=== PATIENT | female | born 1950 | race Caucasian/White ===

== ENCOUNTER 2016-10-11 17:50 | Emergency (ER) | payer MEDICARE ==
[~2016-10-11] VITALS: Ht 160 cm; Wt 108.9 kg
--- NOTE | 2016-10-11 18:43 | PHYS DOC ---
Past Medical History Past Medical History: Diabetes-Type II, GERD, High Cholesterol, Hypertension Past Surgical History: Cholecystectomy, Hysterectomy, Knee Replacement Alcohol Use: Rarely Drug Use: None Adult General Chief Complaint Chief Complaint: OTHER COMPLAINTS HPI HPI Patient is a 65 year old male sent to the ED from the slasher runner's office with the complaint of right eye visual disturbance that began today, the slasher runner is concerned about possible giant cell arteritis. Dr. Kim, the slasher runner, called to speak with the ED charge nurse. He recommended that the patient have a CBC, CRP, sedimentation rate. The patient has no history of giant cell arteritis or stroke. The patient states she has had a right-sided headache all week and her visual disturbance began today. Patient has a history of hypertension and diabetes, does not take her medications like she is supposed to. Review of Systems Review of Systems Constitutional: Denies fever or chills [] Eyes: As in history of present illness HENT: Denies nasal congestion or sore throat [] Respiratory: Denies cough or shortness of breath [] Cardiovascular: No additional information not addressed in HPI [] GI: Denies abdominal pain, nausea, vomiting, bloody stools or diarrhea [] : Denies dysuria or hematuria [] Musculoskeletal: Denies back pain or joint pain [] Integument: Denies rash or skin lesions [] Neurologic: As in history of present illness Allergies Allergies Allergies Coded Allergies Type Severity Reaction Last Updated Verified codeine Adverse Reaction Intermediate NAUSEA 10/11/16 Yes Physical Exam Physical Exam Constitutional: Well developed, well nourished, no acute distress, non-toxic appearance. [] HENT: Normocephalic, atraumatic, bilateral external ears normal, nose normal. [ ] Eyes: Pupils have been dilated by ophthalmology, EOMI, conjunctiva normal, no discharge. [] Neck: Normal range of motion, no stridor. [] Cardiovascular:Heart rate regular rhythm, no murmur [] Lungs & Thorax: Bilateral breath sounds clear to auscultation [] Abdomen: Bowel sounds normal, soft, no tenderness, no masses, no pulsatile masses. [] Skin: Warm, dry, no erythema, no rash. [] Extremities: No tenderness, no cyanosis, no clubbing, ROM intact, no edema. [] Neurologic: Alert and oriented X 3, normal motor function, normal sensory function, no focal deficits noted. [] Current Patient Data Vital Signs Vital Signs Date Time Temp Pulse Resp B/P (MAP) Pulse Ox O2 Delivery O2 Flow Rate FiO2 10/11/16 17:56 98.1 88 24 155/78 (103) 94 Room Air 98.1 Lab Values Laboratory Tests Test 10/11/16 18:28 White Blood Count 14.7 x10^3/uL (4.0-11.0) H Red Blood Count 4.74 x10^6/uL (3.50-5.40) Hemoglobin 13.8 g/dL (12.0-15.5) Hematocrit 41.5 % (36.0-47.0) Mean Corpuscular Volume 88 fL (79-100) Mean Corpuscular Hemoglobin 29 pg (25-35) Mean Corpuscular Hemoglobin Concent 33 g/dL (31-37) Red Cell Distribution Width 15.1 % (11.5-14.5) H Platelet Count 261 x10^3/uL (140-400) Neutrophils (%) (Auto) 71 % (31-73) Lymphocytes (%) (Auto) 20 % (24-48) L Monocytes (%) (Auto) 8 % (0-9) Eosinophils (%) (Auto) 1 % (0-3) Basophils (%) (Auto) 1 % (0-3) Neutrophils # (Auto) 10.4 x10^3uL (1.8-7.7) H Lymphocytes # (Auto) 2.9 x10^3/uL (1.0-4.8) Monocytes # (Auto) 1.1 x10^3/uL (0.0-1.1) Eosinophils # (Auto) 0.2 x10^3/uL (0.0-0.7) Basophils # (Auto) 0.1 x10^3/uL (0.0-0.2) Erythrocyte Sedimentation Rate 26 (0-25) H Sodium Level 142 mmol/L (136-145) Potassium Level 3.2 mmol/L (3.5-5.1) L Chloride Level 102 mmol/L (98-107) Carbon Dioxide Level 29 mmol/L (21-32) Anion Gap 11 (6-14) Blood Urea Nitrogen 25 mg/dL (7-20) H Creatinine 0.9 mg/dL (0.6-1.0) Estimated GFR (Cockcroft-Gault) 62.6 BUN/Creatinine Ratio 28 (6-20) H Glucose Level 107 mg/dL (70-99) H Calcium Level 9.5 mg/dL (8.5-10.1) Total Bilirubin 0.4 mg/dL (0.2-1.0) Aspartate Amino Transferase (AST) 20 U/L (15-37) Alanine Aminotransferase (ALT) 29 U/L (14-59) Alkaline Phosphatase 80 U/L (46-116) C-Reactive Protein, Quantitative 8.3 mg/L (0-3.3) H Total Protein 7.6 g/dL (6.4-8.2) Albumin 3.8 g/dL (3.4-5.0) Albumin/Globulin Ratio 1.0 (1.0-1.7) Laboratory Tests 10/11/16 18:28 Laboratory Tests 10/11/16 18:28 EKG EKG [] Radiology/Procedures Radiology/Procedures [] Course & Med Decision Making Course & Med Decision Making Pertinent Labs and Imaging studies reviewed. (See chart for details) I reviewed the patient's information brought with her from Dr. Kim's office. I ordered a CBC, sedimentation rate, CRP, as well as CMP. I discussed with the patient and her daughter the plan and they're agreeable. White count elevated at 14.7. Remainder of CBC is normal. Sedimentation rate is normal for age at 26, CRP is elevated. I discussed the case with Dr. Nweman, on-call for the office of Dr. Kim and Paty. We discussed the lab results. Dr. Newman believes that in the absence of an elevated sedimentation rate, he is less concerned about temporal arteritis. He believes it is safe to discharge the patient to follow-up as planned in one week, with appropriate return precautions. Discussed results and plan with the patient and her daughter. [] Dragon Disclaimer Dragon Disclaimer This electronic medical record was generated, in whole or in part, using a voice recognition dictation system. Departure Departure Impression: Primary Impression: Visual disturbance of one eye Disposition: HOME, SELF-CARE Condition: STABLE Referrals: ORALIA ALVARADO (PCP) Additional Instructions: As we discussed, Dr. Kim's concern was a condition called temporal arteritis, and labs in the emergency department did not indicate this condition. I discussed the case with Dr. Newman. He wants you to follow up in 1 week as planned, or call them sooner if any deterioration. SOLEDAD COLEY MD Oct 11, 2016 18:43
[2016-10-11 18:44] LABS: BASO # 0.1 x10^3/uL (0.0-0.2); BASO % 1 % (0-3); EOS % 1 % (0-3); HEMATOCRIT 41.5 % (36.0-47.0); HEMOGLOBIN 13.8 g/dL (12.0-15.5); LYMPH # 2.9 x10^3/uL (1.0-4.8); LYMPH % 20 % (24-48); MEAN CORPUSCULAR HEMOGLOBIN 29 pg (25-35); MEAN CORPUSCULAR HGB CONC 33 g/dL (31-37); MEAN CORPUSCULAR VOLUME 88 fL (79-100); MONO % 8 % (0-9); NEUT % 71 % (31-73); PLATELET COUNT 261 x10^3/uL (140-400); RED BLOOD COUNT 4.74 x10^6/uL (3.50-5.40); RED CELL DISTRIBUTION WIDTH 15.1 % (11.5-14.5); WHITE BLOOD COUNT 14.7 x10^3/uL (4.0-11.0)
[2016-10-11 19:01] LABS: CALCIUM 9.5 mg/dL (8.5-10.1); CREATININE 0.9 mg/dL (0.6-1.0); GFR 62.6; POTASSIUM 3.2 mmol/L (3.5-5.1)
[2016-10-11 19:08] LABS: ALBUMIN 3.8 g/dL (3.4-5.0); TOTAL BILIRUBIN 0.4 mg/dL (0.2-1.0); TOTAL PROTEIN 7.6 g/dL (6.4-8.2)
[2016-10-11 20:37] VITALS: BP 137/82
== END 2016-10-11 20:37 | disposition home or self-care (01) ==
LOC: ER 17:50
DX: H53.9 Unspecified visual disturbance (principal); R51 Headache; E11.9 Type 2 diabetes mellitus without complications; K21.9 Gastro-esophageal reflux disease without esophagitis; E78.00 Pure hypercholesterolemia, unspecified; I10 Essential (primary) hypertension; Z90.49 Acquired absence of other specified parts of digestive tract; Z90.710 Acquired absence of both cervix and uterus; Z96.659 Presence of unspecified artificial knee joint; Z88.5 Allergy status to narcotic agent
CPT/HCPCS: 36415; 80053; 85027; 85651; 86140; 99284

== ENCOUNTER 2016-10-28 15:09 | Emergency (ER) | payer MEDICARE ==
[~2016-10-28] VITALS: Ht 162.6 cm; Wt 105.7 kg
--- NOTE | 2016-10-28 16:02 | PHYS DOC ---
Past Medical History Past Medical History: Diabetes-Type II, GERD, High Cholesterol, Hypertension Past Surgical History: Cholecystectomy, Hysterectomy, Knee Replacement Alcohol Use: Rarely Drug Use: None Adult General Chief Complaint Chief Complaint: HEADACHE HPI HPI Patient is a 65 year old female who presents with 2-3 week history of right eye inferior visual field loss intermittent headaches. Denies floaters. Headache is dull and migratory sometimes involving the temples or frontal area. No fever. Occasional posterior neck pain. Has had a prior ER visit apparently labs were checked at that time. Has had 2 prior visits to the control operator flow coat who communicated concerns for inflammation of the optic nerve but there was no specific treatment that the patient was placed on according to the daughter and the patient. Denies any falls or trauma. Patient and family deny any intracranial imaging in the past. Review of Systems Review of Systems Constitutional: Denies fever or chills [] Eyes: Denies change in visual acuity, redness, or eye pain [] HENT: Denies nasal congestion or sore throat [] Respiratory: Denies cough or shortness of breath [] Cardiovascular: No additional information not addressed in HPI [] GI: Denies abdominal pain, nausea, vomiting, bloody stools or diarrhea [] : Denies dysuria or hematuria [] Musculoskeletal: Denies back pain or joint pain [] Integument: Denies rash or skin lesions [] Neurologic: Denies headache, focal weakness or sensory changes [] Endocrine: Denies polyuria or polydipsia [ All review systems are negative except as mentioned in the history of present illness] Current Medications Current Medications Current Medications Medications (Trade) Dose Ordered Sig/[facility] Start Time Stop Time Status Last Admin Dose Admin Gadobutrol (Gadavist) 10 mmol 1X ONCE 10/28/16 17:30 10/28/16 17:31 DC 10/28/16 17:32 10 MMOL Hydromorphone HCl (Dilaudid) 0.5 mg 1X ONCE 10/28/16 18:00 10/28/16 18:01 DC 10/28/16 18:31 0.5 MG Ondansetron HCl (Zofran) 4 mg 1X ONCE 10/28/16 18:00 10/28/16 18:01 DC 10/28/16 18:30 4 MG Allergies Allergies Allergies Coded Allergies Type Severity Reaction Last Updated Verified No Known Medication Allergies Allergy Unknown 10/28/16 Yes codeine Adverse Reaction Intermediate NAUSEA 10/11/16 Yes Physical Exam Physical Exam Constitutional: Well developed, well nourished, no acute distress, non-toxic appearance. [] HENT: Normocephalic, atraumatic, bilateral external ears normal, oropharynx moist, no oral exudates, nose normal. Questionable tenderness to the bilateral lutheran areas [] Eyes: PERRLA, EOMI, conjunctiva normal, no discharge. [] Neck: Normal range of motion, no tenderness, supple, no stridor. [] Cardiovascular:Heart rate regular rhythm, no murmur [] Lungs & Thorax: Bilateral breath sounds clear to auscultation [] Abdomen: Bowel sounds normal, soft, no tenderness, no masses, no pulsatile masses. [] Skin: Warm, dry, no erythema, no rash. [] Back: No tenderness, no CVA tenderness. [] Extremities: No tenderness, no cyanosis, no clubbing, ROM intact, no edema. [] Neurologic: Alert and oriented X 3, normal motor function, normal sensory function, no focal deficits noted. Cranial nerves II through XII grossly intact except for reported visual field deficit in the inferior visual field only on the right eye [] Psychologic: Affect normal, judgement normal, mood normal. [] Current Patient Data Vital Signs Vital Signs Date Time Temp Pulse Resp B/P (MAP) Pulse Ox O2 Delivery O2 Flow Rate FiO2 10/28/16 19:06 76 18 104/57 (73) 94 Room Air 10/28/16 15:28 98.1 98.1 Lab Values Laboratory Tests Test 10/28/16 16:40 10/28/16 16:52 10/28/16 18:03 White Blood Count 16.4 x10^3/uL (4.0-11.0) H Red Blood Count 5.05 x10^6/uL (3.50-5.40) Hemoglobin 14.6 g/dL (12.0-15.5) Hematocrit 44.0 % (36.0-47.0) Mean Corpuscular Volume 87 fL (79-100) Mean Corpuscular Hemoglobin 29 pg (25-35) Mean Corpuscular Hemoglobin Concent 33 g/dL (31-37) Red Cell Distribution Width 15.0 % (11.5-14.5) H Platelet Count 276 x10^3/uL (140-400) Neutrophils (%) (Auto) 76 % (31-73) H Lymphocytes (%) (Auto) 15 % (24-48) L Monocytes (%) (Auto) 8 % (0-9) Eosinophils (%) (Auto) 1 % (0-3) Basophils (%) (Auto) 1 % (0-3) Neutrophils # (Auto) 12.4 x10^3uL (1.8-7.7) H Lymphocytes # (Auto) 2.5 x10^3/uL (1.0-4.8) Monocytes # (Auto) 1.2 x10^3/uL (0.0-1.1) H Eosinophils # (Auto) 0.1 x10^3/uL (0.0-0.7) Basophils # (Auto) 0.1 x10^3/uL (0.0-0.2) Erythrocyte Sedimentation Rate 40 (0-25) H POC Hemoglobin 15.3 g/dL (12-15) H POC Hematocrit 45 % (36-40) H POC Sodium 139 mmol/L (135-145) POC Potassium 3.6 mmol/L (3.5-5.0) POC Chloride 98 mmol/L (98-110) POC Total CO2 30 mmol/L (23-32) Anion Gap 16 mmol/L (6-14) H POC Blood Urea Nitrogen 26 mg/dL (8-26) POC Creatinine 1.3 mg/dL (0.5-1.4) Glucose Level 101 mg/dL (70-99) H POC Ionized Calcium ([place]) 1.20 mmol/L (1.13-1.32) C-Reactive Protein, Quantitative 12.5 mg/L (0-3.3) H Laboratory Tests 10/28/16 16:40 Laboratory Tests 10/28/16 16:52 EKG EKG [] Radiology/Procedures Radiology/Procedures MRI of head and neck demonstrated no aneurysm or vascular abnormality. No commentary on brain lesions or infarcts by radiology. [] Course & Med Decision Making Course & Med Decision Making Pertinent Labs and Imaging studies reviewed. (See chart for details) I discussed MRI findings with the family as well as abnormal labs including slightly elevated white blood cell count sedimentation rate and CRP. Patient is declining lumbar puncture. Patient is declining to repeat an MRI of the brain was apparently only showed the vasculature not the actual brain matter. The nanotechnician told me to change the order that I had originally ordered. I have advised family to follow up with her PCP to obtain an actual MRI of the brain that looks for stroke, given a referral back to ophthalmology in the next 48 hours, and get a referral to general surgery for consideration of biopsy of the temporal artery. In the meantime given the symptoms labs and previous findings by ophthalmology I will place the patient on a brief round of prednisone. [At this point I suspect patient may have temporal arteritis. Workup has been completely fragmented and prolonged over the past several weeks with visual deficit occurring over 2 weeks ago and has not improved and likely won't. No other findings of stroke. Lumbar puncture has been declined by the patient and have explained the benefits of doing that.] Dragon Disclaimer Dragon Disclaimer This electronic medical record was generated, in whole or in part, using a voice recognition dictation system. Departure Departure Impression: Primary Impression: Headache Additional Impression: Temporal arteritis syndrome Condition: IMPROVED Referrals: ORALIA ALVARADO (PCP) Patient Instructions: General Headache Without Cause, [id number], Temporal Arteritis Additional Instructions: Please get referral to ENT or general surgery from her PCP to obtain a biopsy of the temporal artery. Please follow-up with the control operator flow coat in the next 48 hours. These understand that the MRI showed the blood vessels are not the brain matter unfortunately we would have to repeat a brain MRI without IV contrast. Scripts Oxycodone/Apap 5-325 (PERCOCET 5-325 MG TABLET) 1 Each Tablet 1-2 TAB PO Q4-6HRS, #12 TAB Prov: ALANNAH PIERCE MD 10/28/16 Ondansetron (ZOFRAN ODT) 4 Mg Tab.rapdis 1 TAB SL Q8HRS, #8 TAB Prov: ALANNAH PIERCE MD 10/28/16 Prednisone (PREDNISONE) 20 Mg Tablet 2 TAB PO DAILY for 7 Days, #14 TAB Prov: ALANNAH PIERCE MD 10/28/16 Problem Qualifiers ALANNAH PIERCE MD Oct 28, 2016 16:02
[2016-10-28 16:53] LABS: BASO # 0.1 x10^3/uL (0.0-0.2); BASO % 1 % (0-3); EOS % 1 % (0-3); HEMOGLOBIN 14.6 g/dL (12.0-15.5); LYMPH # 2.5 x10^3/uL (1.0-4.8); LYMPH % 15 % (24-48); MEAN CORPUSCULAR HEMOGLOBIN 29 pg (25-35); MEAN CORPUSCULAR HGB CONC 33 g/dL (31-37); MEAN CORPUSCULAR VOLUME 87 fL (79-100); MONO % 8 % (0-9); NEUT % 76 % (31-73); PLATELET COUNT 276 x10^3/uL (140-400); RED BLOOD COUNT 5.05 x10^6/uL (3.50-5.40); WHITE BLOOD COUNT 16.4 x10^3/uL (4.0-11.0)
[2016-10-28 17:01] LABS: POTASSIUM ISTAT 3.6 mmol/L (3.5-5.0)
[2016-10-28] MEDS ORDERED: GADOBUTROL 10 MMOL/10 ML VIAL IV ONE (17:30)
[2016-10-28] MEDS ORDERED: HYDROmorphone 2 MG/ML VIAL IV ONE (18:00)
[2016-10-28] MEDS ORDERED: ONDANSETRON PF 4 MG/2 ML VIAL. IV ONE (18:00)
--- NOTE | 2016-10-28 18:14 | RAD ---
MR ANGIOGRAM NECK HISTORY: INCREASED HEADACHES WITH RIGHT EYE BLURRINESS X 3 WEEKS, NO SX HX, NO PRIORS, IF CRITICAL CALL REPORT TO ER AT [phone] Technique: 2-D [id number] MR angiogram of the neck was obtained. Additional 3-D [id number] MR angiogram through the region of the carotid bifurcations was also performed. Additional maximum intensity pixel projections were also obtained and presented in rotating format. Additional 3-D analysis was also performed. FINDINGS: No hemodynamically significant stenosis is identified in any of the visualized vessels of the neck. There is no evidence of dissection. The carotid bifurcations are widely patent bilaterally. There is antegrade flow in both vertebral arteries. The origins of the great vessels are within normal limits. IMPRESSION: Unremarkable MR angiogram of the neck. No evidence of hemodynamically significant stenosis or dissection is seen. Electronically signed by: Chao Washburn MD (10/28/2016 6:10 PM) [facility]
--- NOTE | 2016-10-28 18:17 | RAD ---
MR ANGIOGRAM HEAD HISTORY: INCREASED HEADACHES WITH RIGHT EYE BLURRINESS X 3 WEEKS, NO SX HX, NO PRIORS, IF CRITICAL CALL REPORT TO ER AT [phone] Technique: Axial and sagittal T1-weighted images of the brain were obtained. 3-D [id number] MR angiogram of the head was obtained. Additional maximum intensity pixel projections were also obtained and presented in rotating format. Additional 3-D analysis was also performed. FINDINGS: No hemodynamically significant stenosis is identified in any of the visualized intracranial vessels. The bilateral internal carotid arteries, carotid siphons, middle cerebral arteries, and anterior cerebral arteries are within normal limits. The region of the anterior communicating artery is normal. The vertebrobasilar junction is within normal limits. The basilar artery, and bilateral posterior cerebral arteries are widely patent. Incidental note is made of origin of the right posterior cerebral artery with an absent or hypoplastic right P1 segment. No aneurysm or arteriovenous malformation is identified. IMPRESSION: No evidence of hemodynamically significant stenosis, aneurysm, or arteriovenous malformation. Electronically signed by: Chao Washburn MD (10/28/2016 6:14 PM) [facility]
[2016-10-28 19:06] VITALS: BP 104/57
[2016-10-28] MEDS ORDERED: ONDA4TAB10 SL (21:03)
[2016-10-28] MEDS ORDERED: PRED20TA PO (21:03)
[2016-10-28] MEDS ORDERED: OXYC-323 PO (21:03)
== END 2016-10-28 21:15 | disposition home or self-care (01) ==
LOC: ER 15:09
DX: M31.6 Other giant cell arteritis (principal); D72.829 Elevated white blood cell count, unspecified; H54.61 Unqualified visual loss, right eye, normal vision left eye; E11.9 Type 2 diabetes mellitus without complications; K21.9 Gastro-esophageal reflux disease without esophagitis; E78.00 Pure hypercholesterolemia, unspecified; I10 Essential (primary) hypertension; Z90.49 Acquired absence of other specified parts of digestive tract; Z90.710 Acquired absence of both cervix and uterus; Z96.659 Presence of unspecified artificial knee joint; Z88.5 Allergy status to narcotic agent
CPT/HCPCS: 36415; 70544; 70549; 80047; 85027; 85651; 86140; 96374; 96375; 99285; A9585; J1170; J2405